=== PATIENT | female | born 1980 | race Caucasian/White ===

== ENCOUNTER → 2021-04-09 | Day surgery (SDC) | payer MEDICAID ==
[~2021-04-09] VITALS: Ht 162.6 cm; Wt 54.0 kg
[~2021-04-09] MED LIST: IV RINGERS,LACTATED 1000ML 1,000 ML IV SCH; LEVO50TA5 PO; PROPOFOL 10 MG/ML (20ML) VIAL. IV ONE
[2021-04-09 08:35] VITALS: BP 124/91
[2021-04-09 09:52] VITALS: BP 126/84
--- NOTE | 2021-04-09 12:50 | HP ---
DATE OF SERVICE: 04/09/2021 ADMIT DATE: 04/09/2021 UPDATED HISTORY AND PHYSICAL REASON: Abdominal pain, history of celiac disease. HISTORY OF PRESENT ILLNESS: A 41-year-old female whose past medical history is significant for celiac disease, hiatal hernia, fibromyalgia, anxiety and hypothyroidism, seen with persistent epigastric abdominal pain that is worsened when eaten a food that is contaminated with gluten. 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 Weight and appetite have been stable. Energy is poor with increased fatigue and headache recently. With continued issues, she requests definitive additional evaluation. PAST MEDICAL HISTORY: Celiac, hiatal hernia, fibromyalgia, anxiety, hypothyroidism. ALLERGIES: None. MEDICATIONS: Include levothyroxine. FAMILY HISTORY: Significant for DE in father and grandfather, hypertension in father, CVA in mother and grandmother. SOCIAL HISTORY: She is a current drinker, former smoker. PAST SURGICAL HISTORY: Noncontributory. REVIEW OF SYSTEMS: Per records. PHYSICAL EXAMINATION: GENERAL: Reveals a well-nourished, well-developed female. VITAL SIGNS: Temperature is 97.4, pulse 64, respiratory rate 18. LUNGS: Clear. CARDIOVASCULAR: Reveals an S1, S2, without S3, S4 or appreciable murmur. ABDOMEN: Reveals a soft abdomen, normal bowel sounds, without appreciable hepatosplenomegaly. Epigastric tenderness to palpation. EXTREMITIES: Reveals no cyanosis, clubbing or edema. IMPRESSION: Abdominal pain, history of celiac disease. Differential includes ulcers, malignancy, lymphoma, gallbladder disease, gastroparesis. Therefore, recommend upper endoscopy with biopsies to further assess. If this is unrevealing then a hepatobiliary imaging to be filed. NIRANJAN DR: Iva TID: [id number]
--- NOTE | 2021-04-11 19:08 | PATHOLOGY ---
[facility] Accession Number: [id number] . 01 Material submitted: . small bowel - SMALL BOWEL BIOPSY . 01 Clinical history: . ABD PAIN, HX CELIAC DISEASE, EGD R/O LYMPHOMA . 02 Diagnosis: Small bowel, biopsy: - Duodenal mucosa with minimal, focal villous atrophy, and occasional foci of increased surface intraepithelial lymphocytes, and areas of lymphoid follicles with germinal centers. - Negative for malignancy. - (See comment) . (MLK:mmjanette; 04/11/2021) [facility] 04/11/2021 1845 Local . 02 Comment: Biopsies from the small bowel display duodenal mucosa. The majority of villi are of appropriate length. There is focal minimal villous shortening. In rare villous tips, there is a slight increase in intraepithelial lymphocytes. This arises in a background with occasional scattered lymphoid aggregates with germinal centers, which are heterogeneous in nature. The findings would be compatible with early and/or treated celiac disease; however, there is no histologic evidence in the current material to suggest a lymphoproliferative process. . The case is seen in co-review with consensus by hematopathologist, Dr. Sedrick Knapp, on 04/11/2021. . (MLK:mmjanette; 04/11/2021) . 02 Electronically signed: . Mack Quiroz MD, Pathologist NPI- [id number] . 01 Gross description: . The specimen is received in formalin, labeled "Black, Brianna, small bowel biopsy". Received are multiple segments of pale hernandez tissue ranging in size from 0.2-0.5 cm in maximum dimensions. The specimen is entirely submitted in cassette A1. ([facility]; 04/09/2021) NRI/NRI 04/09/2021 1609 Local . 02 Pathologist provided ICD-10: R10.9, Z87.898 . 02 CPT . 580479 Specimen Comment: A courtesy copy of this report has been sent to [phone], [phone] Specimen Comment: 1988 Specimen Comment: Report sent to / DR FONTANA Specimen Comment: A duplicate report has been generated due to demographic updates. Performed at: 01 [facility] [address] [facility] [address], [place] [id number] MD Danial Cheung MD Phone: [phone] Performed at: 02 [facility] [place] [address] [place], [place] [id number] MD Umesh Bonilla MD Phone: [phone]
== END | disposition home or self-care (01) ==
LOC: SURG 07:43
PROVIDERS: ATTEND Internal Medicine Gastroenterology
DX: R10.13 Epigastric pain (principal); K90.0 Celiac disease; K31.89 Other diseases of stomach and duodenum; K44.9 Diaphragmatic hernia without obstruction or gangrene; E03.9 Hypothyroidism, unspecified; E78.00 Pure hypercholesterolemia, unspecified; M81.0 Age-related osteoporosis without current pathological fracture; F41.9 Anxiety disorder, unspecified; Z87.891 Personal history of nicotine dependence; Z79.899 Other long term (current) drug therapy; Z98.890 Other specified postprocedural states; Z82.49 Family history of ischemic heart disease and other diseases of the circulatory system; Z72.89 Other problems related to lifestyle; Z20.822 Contact with and (suspected) exposure to COVID-19
CPT/HCPCS: 43239; 81025; 87426; J2704